=== PATIENT | male | born 1985 | race Caucasian/White ===

== ENCOUNTER 2020-11-20 18:51 | Emergency (ER) | payer OTHER ==
[~2020-11-20] VITALS: Ht 177.8 cm; Wt 76.9 kg
--- NOTE | 2020-11-20 22:44 | NUR ---
PT STATES LAST NIGHT HE FELT CONFUSED, HIS HAND WENT NUMB, AND SEVERE HEADACHE. DENIES SOB AND CP. SYMPTOMS BEGAN TODAY AGAIN SO PT CAME TO ER ATTACHED TO MONITORS. HUGO. CHAITANYAN. AMBULATED TO ROOM WITH STEADY GAIT. BED IN LOW POSITION, RILS ENGAGED. CALL LIGHT ON LAP. AT BEDSIDE. GUILLAUME.
[2020-11-20] MEDS ORDERED: ACETAMINOPHEN 500 MG TABLET PO ONE (23:00)
[2020-11-20] MEDS ORDERED: ACETAMINOPHEN 500 MG TABLET ONE (23:04)
[2020-11-20 23:09] VITALS: BP 120/68
== END 2020-11-20 23:14 | disposition home or self-care (01) ==
LOC: ED 22:45
DX: R51.9 Headache, unspecified (principal); R20.8 Other disturbances of skin sensation; R00.1 Bradycardia, unspecified
CPT/HCPCS: 70450; 93005; 99284